=== PATIENT | male | born 1965 | race African-American/Black ===

== ENCOUNTER 2023-11-14 09:12 | Emergency (ER) | payer OTHER ==
[~2023-11-14] VITALS: Ht 188 cm; Wt 91.8 kg
[2023-11-14 10:55] VITALS: PULSE 88; RESP 14; TEMP 98.9; O2SAT 97
[2023-11-14] MEDS: ONDANSETRON HCL 4 MG/2 ML VIAL IM ONE (11:11)
[2023-11-14] MEDS: HYDROmorphone HCL 2 MG/ML VL/or syr IM ONE (11:11)
[2023-11-14 11:35] LABS: Basophils # (auto) 0.1 10 ^3/uL (0-0.2); Basophils % (auto) 1.2 % (0.0-2.0); Eosinophils # (auto) 0.1 10 ^3/uL (0-0.8); Eosinophils % (auto) 1.6 % (0.0-7.0); Hematocrit 36.3 % (41.0-53.0); Hemoglobin 12.4 g/dL (13.5-17.5); Lymphocytes # (auto) 2.7 10 ^3/uL (0.4-5.4); Lymphocytes % (auto) 30.1 % (10.0-50.0); Mean Corpuscular Hemoglobin 31.4 pg (28.0-32.0); Mean Corpuscular Hgb Conc. 34.3 g/dL (32.0-36.0); Mean Corpuscular Volume 91.6 fL (80.0-100.0); Monocytes # (auto) 0.6 10 ^3/uL (0-1.3); Monocytes % (auto) 6.5 % (0.0-12.0); Neutrophils # (auto) 5.3 10 ^3/uL (1.6-8.6); Neutrophils % (auto) 60.6 % (37.0-80.0); Nucleated Red Blood Cells % 0.1 %; Red Blood Cells 3.97 10^6/uL (4.5-5.90); Red Cell Distribution Width 14.9 % (11.8-14.3); White Blood Cell 8.8 10^3/uL (4.4-10.8)
[2023-11-14 11:49] LABS: INR 0.94 (0.9-1.15); Partial Thromboplastin Time 31.7 SEC (24.5-34.5)
[2023-11-14 11:54] LABS: Alanine Aminotransferase 36 U/L (7-40); Albumin 4.3 g/dL (3.2-4.8); Alkaline Phosphatase 66 U/L (46-116); Anion Gap 7 (5-15); Aspartate Aminotransferase 20 U/L (13-40); BUN/Creatinine Ratio 9.2 (10.0-20.0); Bilirubin, Total 0.4 mg/dL (0.2-1.0); Blood Urea Nitrogen 12 mg/dL (9-23); Calcium 9.5 mg/dL (8.7-10.4); Carbon Dioxide 24 mmol/L (20-30); Chloride 110 mmol/L (98-107); Glucose 97 mg/dL (74-106); Magnesium 1.7 mg/dL (1.6-2.6); Sodium 141 mmol/L (136-145); Total Protein 6.7 g/dL (5.7-8.2)
[2023-11-14] MEDS: LORazepam 2MG/ML-1ML VIAL IV ONE (12:07)
[2023-11-14] MEDS: KETOROLAC TROMETH 30 MG/ML 1ML VIAL IV ONE (13:00)
[2023-11-14] MEDS: MORPHINE SULFATE 4 MG/ML SYR/VIAL IV ONE (13:04)
[2023-11-14] MEDS: HYDROmorphone HCL 2 MG/ML VL/or syr IV ONE (14:57)
[2023-11-14] MEDS ORDERED: CYCL-839 PO (16:17)
[2023-11-14] MEDS ORDERED: DICL50TA2 PO (16:17)
[2023-11-14] MEDS ORDERED: HYDR-4902 PO (16:17)
[2023-11-14 16:19] VITALS: BP 156/88; PULSE 88; RESP 18; O2SAT 96
[2023-11-14] MEDS ORDERED: ASPI-498 OR (16:32)
== END 2023-11-14 16:35 | disposition home or self-care (01) ==
LOC: ER 09:12
DX: G45.9 Transient cerebral ischemic attack, unspecified (principal); I10 Essential (primary) hypertension; G89.29 Other chronic pain; M54.9 Dorsalgia, unspecified
CPT/HCPCS: 36415; 70450; 70551; 71045; 80053; 82962; 83735; 83880; 84484; 85025; 85610; 85730; 93005; 96372; 96374; 96375; 99285; J1170; J1885; J2060; J2270; J2405

== ENCOUNTER 2023-11-17 10:38 | Emergency (ER) | payer OTHER ==
[~2023-11-17] VITALS: Ht 188 cm; Wt 91.8 kg
[~2023-11-17 10:38] MED LIST: ASPI-498 OR; CYCL-839 PO; DICL50TA2 PO; HYDR-4902 PO
[2023-11-17] MEDS: SODIUM CHLORIDE 0.9% 1,000 ML IV ONE (12:52)
[2023-11-17] MEDS: ONDANSETRON HCL 4 MG/2 ML VIAL IV ONE (12:52)
[2023-11-17] MEDS: MORPHINE SULFATE 4 MG/ML SYR/VIAL IV ONE (12:54)
[2023-11-17 12:56] VITALS: PULSE 101; RESP 19; O2SAT 95
[2023-11-17 13:05] LABS: Basophils # (auto) 0.1 10 ^3/uL (0-0.2); Basophils % (auto) 1.2 % (0.0-2.0); Eosinophils # (auto) 0.1 10 ^3/uL (0-0.8); Eosinophils % (auto) 1.4 % (0.0-7.0); Hematocrit 38.6 % (41.0-53.0); Hemoglobin 13.4 g/dL (13.5-17.5); Lymphocytes # (auto) 1.7 10 ^3/uL (0.4-5.4); Lymphocytes % (auto) 26.5 % (10.0-50.0); Mean Corpuscular Hemoglobin 31.8 pg (28.0-32.0); Mean Corpuscular Hgb Conc. 34.8 g/dL (32.0-36.0); Mean Corpuscular Volume 91.4 fL (80.0-100.0); Monocytes # (auto) 0.4 10 ^3/uL (0-1.3); Neutrophils # (auto) 4.1 10 ^3/uL (1.6-8.6); Neutrophils % (auto) 63.9 % (37.0-80.0); Nucleated Red Blood Cells % 0.1 %; Red Blood Cells 4.23 10^6/uL (4.5-5.90); White Blood Cell 6.4 10^3/uL (4.4-10.8)
[2023-11-17 13:15] LABS: Anion Gap 9 (5-15); Calcium 10.7 mg/dL (8.7-10.4); Carbon Dioxide 23 mmol/L (20-30); Chloride 108 mmol/L (98-107); Potassium 4.6 mmol/L (3.5-5.1); Sodium 140 mmol/L (136-145)
[2023-11-17 13:21] LABS: BUN/Creatinine Ratio 10.4 (10.0-20.0); Blood Urea Nitrogen 13 mg/dL (9-23); Glucose 109 mg/dL (74-106)
[2023-11-17 13:54] LABS: Urine Bacteria None Seen /hpf (None Seen)
[2023-11-17 14:05] LABS: Urine Blood Negative /uL (Negative); Urine Clarity Clear (Clear); Urine Color Light-Yellow (Yellow); Urine Protein, UAD Negative (Negative); Urine Specific Gravity 1.014 (1.001-1.035); Urine Urobilinogen Normal (Negative); Urine WBC 1 /hpf (0 - 3); Urine pH 7.5 (5.0-9.0)
[2023-11-17 14:19] VITALS: TEMP 98.3
[2023-11-17] MEDS: HYDROcodone-ACET 10/325MG TAB PO ONE (14:46)
[2023-11-17] MEDS ORDERED: PERCOT PO (14:59)
[2023-11-17 15:41] VITALS: BP 145/99; PULSE 78; RESP 18; O2SAT 97
== END 2023-11-17 15:50 | disposition home or self-care (01) ==
LOC: ER 10:38
DX: M79.602 Pain in left arm (principal); M54.9 Dorsalgia, unspecified; F17.210 Nicotine dependence, cigarettes, uncomplicated; F15.90 Other stimulant use, unspecified, uncomplicated; Z86.73 Personal history of transient ischemic attack (TIA), and cerebral infarction without residual deficits; Z85.9 Personal history of malignant neoplasm, unspecified; Z87.442 Personal history of urinary calculi; Z98.890 Other specified postprocedural states; Z88.8 Allergy status to other drugs, medicaments and biological substances; Z79.899 Other long term (current) drug therapy
CPT/HCPCS: 36415; 74176; 80048; 81001; 82962; 85025; 93005; 96361; 96374; 96375; 99285; J2270; J2405; J7030

== ENCOUNTER 2023-12-11 09:53 | Emergency (ER) | payer OTHER ==
[~2023-12-11] VITALS: Ht 188 cm; Wt 95.0 kg
[~2023-12-11 09:53] MED LIST changes: +PERCOT PO
[2023-12-11 11:17] LABS: Basophils # (auto) 0.1 10 ^3/uL (0-0.2); Basophils % (auto) 0.9 % (0.0-2.0); Eosinophils # (auto) 0.1 10 ^3/uL (0-0.8); Eosinophils % (auto) 1.9 % (0.0-7.0); Hematocrit 38.1 % (41.0-53.0); Hemoglobin 12.8 g/dL (13.5-17.5); Lymphocytes # (auto) 2.2 10 ^3/uL (0.4-5.4); Mean Corpuscular Hemoglobin 31.2 pg (28.0-32.0); Mean Corpuscular Hgb Conc. 33.7 g/dL (32.0-36.0); Mean Corpuscular Volume 92.7 fL (80.0-100.0); Monocytes # (auto) 0.6 10 ^3/uL (0-1.3); Monocytes % (auto) 7.8 % (0.0-12.0); Neutrophils # (auto) 4.2 10 ^3/uL (1.6-8.6); Neutrophils % (auto) 58.4 % (37.0-80.0); Nucleated Red Blood Cells % 0.1 %; Platelet Count (auto) 348 10^3/uL (140-450); Red Blood Cells 4.11 10^6/uL (4.5-5.90); Red Cell Distribution Width 15.6 % (11.8-14.3); White Blood Cell 7.2 10^3/uL (4.4-10.8)
[2023-12-11 11:34] LABS: INR 0.97 (0.9-1.15); Partial Thromboplastin Time 33.1 SEC (24.5-34.5); Prothrombin Time 10.3 sec (9.3-11.8)
[2023-12-11 11:35] LABS: Alanine Aminotransferase 21 U/L (7-40); Alkaline Phosphatase 81 U/L (46-116)
[2023-12-11 11:36] LABS: Albumin 4.5 g/dL (3.2-4.8); Anion Gap 6 (5-15); Aspartate Aminotransferase 16 U/L (13-40); BUN/Creatinine Ratio 5.7 (10.0-20.0); Blood Urea Nitrogen 8 mg/dL (9-23); Calcium 9.9 mg/dL (8.7-10.4); Carbon Dioxide 23 mmol/L (20-30); Chloride 109 mmol/L (98-107); Glucose 120 mg/dL (74-106); Potassium 3.8 mmol/L (3.5-5.1); Sodium 138 mmol/L (136-145)
[2023-12-11 11:37] LABS: Bilirubin, Total 0.3 mg/dL (0.2-1.0); Total Protein 7.4 g/dL (5.7-8.2)
[2023-12-11] MEDS: MORPHINE SULFATE 4 MG/ML SYR/VIAL IV ONE ×2 (12:13→14:26)
[2023-12-11] MEDS: ONDANSETRON HCL 4 MG/2 ML VIAL IV ONE (12:13)
[2023-12-11 18:13] VITALS: BP 147/107; PULSE 95; RESP 20; O2SAT 95
[2023-12-11] MEDS ORDERED: ATOR40TA52 PO (18:57)
== END 2023-12-11 19:24 | disposition home or self-care (01) ==
LOC: ER 09:53
DX: R53.1 Weakness (principal); I10 Essential (primary) hypertension; F17.210 Nicotine dependence, cigarettes, uncomplicated; F15.90 Other stimulant use, unspecified, uncomplicated; Z86.73 Personal history of transient ischemic attack (TIA), and cerebral infarction without residual deficits; Z85.9 Personal history of malignant neoplasm, unspecified; Z87.442 Personal history of urinary calculi; Z98.890 Other specified postprocedural states; Z86.2 Personal history of diseases of the blood and blood-forming organs and certain disorders involving the immune mechanism
CPT/HCPCS: 36415; 70450; 80053; 82962; 84484; 85025; 85610; 85730; 93005; 96374; 96375; 96376; 99285; J2270; J2405

== ENCOUNTER 2024-01-16 10:56 | Emergency (ER) | payer OTHER ==
[~2024-01-16] VITALS: Ht 188 cm; Wt 93.0 kg
[2024-01-16 10:56] VITALS: BP 131/70; RESP 20; O2SAT 98
[~2024-01-16 10:56] MED LIST changes: +ATOR40TA52 PO
[2024-01-16 11:15] VITALS: PULSE 99
== END 2024-01-16 18:17 | disposition left against medical advice (07) ==
LOC: ER 10:56
DX: R53.1 Weakness (principal); R51.9 Headache, unspecified; I10 Essential (primary) hypertension; K21.9 Gastro-esophageal reflux disease without esophagitis; E78.5 Hyperlipidemia, unspecified; F17.210 Nicotine dependence, cigarettes, uncomplicated; F12.10 Cannabis abuse, uncomplicated; Z86.73 Personal history of transient ischemic attack (TIA), and cerebral infarction without residual deficits
CPT/HCPCS: 70450; 82962; 93005

== ENCOUNTER 2024-10-30 12:17 | Observation (INO) | payer OTHER ==
[~2024-10-30] VITALS: Ht 188 cm; Wt 94.0 kg
[2024-10-30 12:30] VITALS: TEMP 98
--- NOTE | 2024-10-30 12:36 | ED.PDOC ---
HPI (NEURO) HPI Comments 58-year-old male presents here with left-sided weakness. History is given by both the patient and his . However patient is uncooperative in triage and difficult to get a history. However it seems that patient symptoms started 2 days ago and a proximally 2-3 a.m.. They went to [facility] where he was evaluated and discharged. He went to [facility] yesterday and also was discharged at that point. The states he does have a history of stroke but at normal baseline he does not have symptoms. She states these are new. Denies any fever or chills. Denies any cough cold runny nose. Patient not on any blood thinners. Chief Complaint: Left Sided Weakness Time Seen by MD: 12:19 Primary Care Provider: Arsh Information Source: Patient, Relative, Spouse Past Medical History PAST MEDICAL HISTORY: Cancer, CVA, GERD, High Lipids, HTN, Kidney Stones, Seizures Surgical History: Denies all surgeries Family History Family History: Unknown Social History Smoker: Cigarettes Alcohol: Denies ETOH Use Drugs: Marijuana Lives In: Home All Other Systems: Reviewed and Negative Physical Exam General Appearance: Moderate Distress, Normal HEENT: Normal ENT Inspection, Pharynx Normal, TMs Normal Neck: Full Range of Motion, Non-Tender, Normal, Normal Inspection Respiratory: Chest Non-Tender, Lungs Clear, No Accessory Muscle Use, No Respiratory Distress, Normal Breath Sounds Cardiovascular: No Edema, No JVD, No Murmur, No Gallop, Normal Peripheral Pulses, Regular Rate/Rhythm Breast Exam: Deferred Gastrointestinal: No Organomegaly, Non Tender, No Pulsatile Mass, Normal Bowel Sounds, Soft Genitalia: Deferred Pelvic: Deferred Rectal: Deferred Extremities: No calf tenderness, Normal capillary refill, Normal inspection, Normal range of motion, Non-tender, No pedal edema Musculoskeletal : Apperance: Normal Neurologic: Alert, Normal Affect, Normal Mood, Other (Complete left-sided paresis to left upper and lower extremity. Left facial droop. Positive slurred speech) Cerebellar Function: Normal Reflexes: Normal Skin: Dry, Normal Color, Warm Lymphatic: No Adenopathy EKG EKG : Comments sinus tachycardia, rate of 122, no st changes Was a procedure done? Was a procedure done?: No Differential Diagnosis (SZ) Seizure: Other CVA: SAH, Other (Stroke, TIA, migraine) General Weakness: Other Headache: Other X-Ray, Labs, Meds, VS Vital Signs Date Time Temp Pulse Resp B/P (MAP) Pulse Ox O2 Delivery O2 Flow Rate FiO2 10/30/24 17:00 96 20 157/120 (132) 98 10/30/24 15:53 100 20 153/111 10/30/24 15:24 104 24 155/103 10/30/24 15:23 104 24 155/103 10/30/24 15:00 104 24 155/103 (120) 98 10/30/24 13:19 111 18 140/100 10/30/24 12:35 120 16 140/100 (113) 92 10/30/24 12:30 98.0 130 20 121/94 (103) 99 98.0 10/30/24 12:23 122 Lab Test 10/30/24 15:45 10/30/24 15:44 10/30/24 15:00 Range/Units Urine Color Yellow Yellow Urine Clarity Clear Clear Urine pH 6.0 5.0-9.0 Urine Specific [place] > 1.035 H 1.001-1.035 Urine Protein Trace H Negative Urine Ketones 1+ H Negative Urine Blood Trace H Negative /uL Urine Nitrite Negative Negative Urine Bilirubin Negative Negative Urine Urobilinogen Normal Negative mg/dL Urine Leukocyte Esterase Negative Negative /uL Urine RBC 3 0 - 3 /hpf Urine Microscopic WBC < 1 0-3 /HPF Urine Squamous Epithelial Cells Few <5 /hpf Urine Bacteria None seen None Seen /hpf Urine Glucose Normal Normal mg/dL Troponin I High Sensitivity 5 6 </=54 ng/L White Blood Count 10.3 4.4-10.8 10^3/uL Red Blood Count 4.56 4.5-5.90 10^6/uL Hemoglobin 14.2 13.5-17.5 g/dL Hematocrit 41.7 41.0-53.0 % Mean Corpuscular Volume 91.4 80.0-100.0 fL Mean Corpuscular Hemoglobin 31.2 28.0-32.0 pg Mean Corpuscular Hemoglobin Concent 34.1 32.0-36.0 g/dL Red Cell Distribution Width 14.9 H 11.8-14.3 % Platelet Count 423 140-450 10^3/uL Mean Platelet Volume 7.3 6.9-10.8 fL Neutrophils (%) (Auto) 64.4 37.0-80.0 % Lymphocytes (%) (Auto) 26.8 10.0-50.0 % Monocytes (%) (Auto) 7.6 0.0-12.0 % Eosinophils (%) (Auto) 0.6 0.0-7.0 % Basophils (%) (Auto) 0.6 0.0-2.0 % Neutrophils # (Auto) 6.6 1.6-8.6 10 ^3/uL Lymphocytes # (Auto) 2.8 0.4-5.4 10 ^3/uL Monocytes # (Auto) 0.8 0-1.3 10 ^3/uL Eosinophils # (Auto) 0.1 0-0.8 10 ^3/uL Basophils # (Auto) 0.1 0-0.2 10 ^3/uL Nucleated Red Blood Cells 0.2 % Sodium Level 144 136-145 mmol/L Potassium Level 3.8 3.5-5.1 mmol/L Chloride Level 115 H 98-107 mmol/L Carbon Dioxide Level 20 20-31 mmol/L Anion Gap 9 5-15 Blood Urea Nitrogen 14 9-23 mg/dL Creatinine 1.36 H 0.700-1.30 mg/dL Glomerular Filtration Rate Calc 61 >90 mL/min BUN/Creatinine Ratio 10.3 10.0-20.0 Serum Glucose 80 74-106 mg/dL Calcium Level 9.7 8.7-10.4 mg/dL Total Bilirubin 0.9 0.2-1.0 mg/dL Aspartate Amino Transferase (AST) 24 13-40 U/L Alanine Aminotransferase (ALT) 16 7-40 U/L Alkaline Phosphatase 83 46-116 U/L Total Protein 7.4 5.7-8.2 g/dL Albumin 4.7 3.2-4.8 g/dL Current Medications Medications (Trade) Dose Ordered Sig/Esther Route Start Time Stop Time Status Last Admin Morphine Sulfate 8 mg ONCE ONCE IM 10/30/24 13:00 10/30/24 13:01 DC 10/30/24 13:19 Ondansetron HCl (Zofran Po) 4 mg ONCE ONCE PO 10/30/24 13:00 10/30/24 13:01 DC 10/30/24 13:16 Hydromorphone HCl (Dilaudid Injection) 1 mg ONCE ONCE IV 10/30/24 15:15 10/30/24 15:16 DC 10/30/24 15:23 58-year-old male presents here with left-sided paresis. He was immediately taken back to be seen by myself as it did not look well. He had left facial droop left arm and complete left leg weakness. However at this time he is out of the time window for tPA and neurologic intervention given the has been more than 2 days. At this time blood work has been done which is largely unremarkable. He has mild acute kidney injury at 1.36. At this time CT scan of the brain has been done which does not demonstrate acute pathology. Patient has been given aspirin in the ER. Here to team has been consulted for admission. I have spoken Dr. King Time of 1ST Reevaluation: 15:23 Reevaluation 1ST: Unchanged Patient Education/Counseling: Diagnosis, Treatment Family Education/Counseling: Diagnosis, Treatment Departure 1 Departure Time of Disposition: 17:23 Impression: Primary Impression: Stroke-like symptoms Additional Impression: Left-sided weakness Disposition: 09 ADMITTED INPATIENT Condition: Guarded Critical Care Note Critical Care Time?: Yes (35 min-critical care time only) Stability Stability form required: No Heart Score Heart Score: Heart Score Response (Comments) Value History N/A 0 EKG N/A 0 Age N/A 0 Risk Factors N/A 0 Troponin N/A 0 Total 0 PALAK SUBRAMANIAN MD Oct 30, 2024 12:36
--- NOTE | 2024-10-30 12:36 | ECG ---
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
[2024-10-30] MEDS: ONDANSETRON ODT 4 MG TAB PO ONE (13:16)
[2024-10-30] MEDS: MORPHINE SULFATE INJ 2 MG/ml SYRG IM ONE (13:19)
--- NOTE | 2024-10-30 14:39 | DVH ---
Procedure: CT HEAD WITHOUT CONTRAST Study Date and Requested Time: 10/30/2024 01:31 PM History: ro stroke Comparison: CT STROKE CTH on DOS: 01/16/24, CT HEAD WITHOUT CONTRAST on DOS: 12/23/23, CT STROKE CTH on DOS: 12/11/23 Dose: CTDI: 57.09 mGy DLP: 1125.08 mGycm Technique: Multiplanar images obtained through the brain without intravenous contrast. Findings: Old frontoparietal predominant brain atrophy with [id number] cerebellar atrophy. Mild chronic s mall vessel ischemic changes. No hemorrhages, masses, mass effect, midline shift, herniation or cytotoxic edema following a large v ascular territory. No intra-axial or extra-axial fluid collections. No evidence of hydrocephalus. The basal cisterns are patent. The pituitary gland, sella and parasellar regions are unremarkable. The cerebellar tonsils are in nor mal position. The cerebellum is unremarkable. The orbits and globes are unremarkable. The paranasal sinuses and mastoids are clear. There are no wo rrisome calvarial lesions. Impression: No evidence of acute intracranial abnormality. If symptoms persist, consider MRI for further evaluati on.
[2024-10-30 15:10] LABS: Hematocrit 41.7 % (41.0-53.0); Hemoglobin 14.2 g/dL (13.5-17.5); Mean Corpuscular Hemoglobin 31.2 pg (28.0-32.0); Mean Corpuscular Volume 91.4 fL (80.0-100.0); Nucleated Red Blood Cells % 0.2 %
[2024-10-30] MEDS: HYDROmorphone HCL 2 MG/ML VL/or syr IV ONE ×2 (15:23→18:06)
[2024-10-30 15:25] LABS: Alanine Aminotransferase 16 U/L (7-40); Albumin 4.7 g/dL (3.2-4.8); Alkaline Phosphatase 83 U/L (46-116); Anion Gap 9 (5-15); BUN/Creatinine Ratio 10.3 (10.0-20.0); Blood Urea Nitrogen 14 mg/dL (9-23); Calcium 9.7 mg/dL (8.7-10.4); Carbon Dioxide 20 mmol/L (20-31); Glucose 80 mg/dL (74-106); Potassium 3.8 mmol/L (3.5-5.1); Sodium 144 mmol/L (136-145); Total Protein 7.4 g/dL (5.7-8.2)
[2024-10-30 15:26] LABS: Bilirubin, Total 0.9 mg/dL (0.2-1.0)
[2024-10-30 15:46] LABS: Chloride 115 mmol/L (98-107)
[2024-10-30 16:17] LABS: Urine Protein, UAD TRACE (Negative)
[2024-10-30 17:00] VITALS: O2SAT 98
[2024-10-30 18:06] VITALS: BP 136/97; PULSE 96; RESP 30
[2024-10-30] MEDS ORDERED: ACETAMINOPHEN 325 MG TAB PO PRN (18:45)
[2024-10-30] MEDS ORDERED: LORazepam 2MG/ML-1ML VIAL IV PRN (18:45)
[2024-10-30] MEDS ORDERED: MORPHINE SULFATE INJ 2 MG/ml SYRG IV PRN (18:45)
[2024-10-30] MEDS ORDERED: TEMAZEPAM 15 MG CAP PO PRN (18:45)
[2024-10-30] MEDS ORDERED: OXYCODONE W/ ACETAMINOPHEN 5/325MG TABLET PO PRN (18:45)
[2024-10-30] MEDS ORDERED: NITROGLYCERIN 0.4 MG SL TAB SL PRN (18:45)
[2024-10-30] MEDS ORDERED: HYDROcodone-ACET 5/325MG TAB PO PRN (18:45)
[2024-10-30] MEDS ORDERED: HYDROmorphone HCL 2 MG/ML VL/or syr IV PRN (18:45)
--- NOTE | 2024-10-30 18:55 | DVHHP2 ---
Admitting Diagnosis: Left sided weakness and pain History of Present Illness HPI Patient with history of CVA with left sided weakness presents with complaints of persistent pain. Patient has a previous admission 2 days prior for similar complaints at [facility]. He had left AMA at the time. Patient presents again due to persistence of left side pain. He notes that he sees pain management but does not know why he has left-sided pain to this extent. Patient denies completing cervical spine imaging. Patient denies any worsening in weakness. I had an extensive discussion with the patient, his at bedside and nurse Christ. Patient has been noted to be uncooperative at times with episodes of anger. I spent a significant portion of time counseling the patient on the plan of care with imaging suggested. Patient was in agreement with this plan. I also emphasized to the patient that his pain medications will be timed accordingly without excessive IV pain medications as patient has a prior history of requesting excessive pain medication. Patient initially was frustrated but then was in agreement with the plan after understanding the timeline. Patient was admitted for further evaluation of his left upper extremity and lower extremity pain. Home Meds Active Scripts Atorvastatin Calcium (ATORVASTATIN CALCIUM) 40 Mg Tab, 1 TAB PO QPM, #90 TAB 3 Refills Prov:RADHAMES ALEJO DO 12/11/23 Oxycodone W/ Acetaminophen (Percocet 5/325MG) 1 Tab Tb, 1 TAB PO BID, #30 TAB Prov:CESAR SEGURA MD 11/17/23 Aspirin (ASPIRIN 81) 81 Mg Tab, 81 MG OR BID for 90 Days, #180 TAB Prov:SUPRIYA FORBES MD 11/14/23 Hydrocodone-Acetaminophen (Hydrocodone Bitartrate/AC 5-325 mg) 1 Tab Tab, 1 TAB PO TID for 5 Days, #15 TAB Prov:SUPRIYA FORBES MD 11/14/23 Cyclobenzaprine Hcl (Cyclobenzaprine Hcl) 10 Mg Tab, 10 MG PO TID for 10 Days, #30 TAB Prov:SUPRIYA FORBES MD 11/14/23 Diclofenac Potassium (Diclofenac Potassium) 50 Mg Tab, 1 TAB PO TIDP for 10 Days, #30 TAB Prov:SUPRIYA FORBES MD 11/14/23 Past Medical History Cardiac: HTN Central Nervous System: CVA Review of Systems Musculoskeletal: Arm pain H&P Exam Vital Signs Vital Signs Date Time Temp Pulse Resp B/P (MAP) Pulse Ox O2 Delivery O2 Flow Rate FiO2 10/30/24 18:06 96 30 136/97 10/30/24 17:00 98 10/30/24 12:30 98.0 98.0 General Appeara: Well developed Cardiovascular/Chest: Normal inspection, Tachycardia Tendon/ Neuro: Normal sensation, Other (Decreased strength left upper and lower extremity) Eye contact/ Speech: Belligerent SEPSIS Sepsis Screen Date sepsis recognized/suspect: Oct 30, 2024 Time Sepsis recognized/suspect: 1221 Recent Procedure: No On Antibiotic Therapy: No Respiratory Rate >20: No Heart Rate >90: Yes Temp<36 C (96.8 F) or >38.3 C: No SBP <90 or MAP <65 mmHG: No New Acute Mental Status Change: No Is the patient on CPAP, BIPAP,: No Physician Orders Head Without Contrast (10/30/24 12:31) Electrocardigram (10/30/24 13:31) Admit (10/30/24 18:34) Code Status (10/30/24 18:34) Acetaminophen Tablet (Tylenol Tablet) (10/30/24 18:45) Hydrocodone-Acet 5/325mg Tab ([place] 5/32 (10/30/24 18:45) Temazepam (Restoril) (10/30/24 18:45) Nitroglycerin Sublingual (Ntrostat Subli (10/30/24 18:45) Morphine Sulfate Injection (10/30/24 18:45) Stat Ekg For Chest Pain (10/30/24 18:34) Notify Md Of Changes From Base (10/30/24 18:34) Defensive Driving Instructor For 24 Hours (10/30/24 18:34) Emergency Dysrhythmia Protocol (10/30/24 18:34) Rhythm Strips Once Every Shift (10/30/24 18:34) Oxygen By Nasal Cannula (10/30/24 18:34) Oxycodone W/ Acet 5/325mg Tab (Percocet (10/30/24 18:45) Hydromorphone Injection (Dilaudid Inject (10/30/24 18:45) Brain Head Wo Contrast (10/30/24 18:37) Mri Neck W Out Contrast (10/30/24 18:40) Lorazepam 2mg/Ml Inj (Ativan Inj) (10/30/24 18:45) Vital Signs Date Time Temp Pulse Resp B/P (MAP) Pulse Ox O2 Delivery O2 Flow Rate FiO2 10/30/24 18:06 96 30 136/97 10/30/24 17:00 96 20 157/120 (132) 98 10/30/24 15:53 100 20 153/111 10/30/24 15:24 104 24 155/103 10/30/24 15:23 104 24 155/103 10/30/24 15:00 104 24 155/103 (120) 98 10/30/24 13:19 111 18 140/100 10/30/24 12:35 120 16 140/100 (113) 92 10/30/24 12:30 98.0 130 20 121/94 (103) 99 98.0 10/30/24 12:23 122 Laboratory Tests Test 10/30/24 15:00 White Blood Count 10.3 10^3/uL (4.4-10.8) Medications Medications Dose Ordered Sig/Esther Route Start Time Stop Time Status Last Admin Dose Admin Hydromorphone HCl 1 mg ONCE ONCE IV 10/30/24 15:15 10/30/24 15:16 DC 10/30/24 15:23 1 MG Hydromorphone HCl 1 mg ONCE ONCE IV 10/30/24 18:00 10/30/24 18:01 DC 10/30/24 18:06 1 MG Morphine Sulfate 8 mg ONCE ONCE IM 10/30/24 13:00 10/30/24 13:01 DC 10/30/24 13:19 8 MG Ondansetron HCl 4 mg ONCE ONCE PO 10/30/24 13:00 10/30/24 13:01 DC 10/30/24 13:16 4 MG Labs/Xrays Labs Test 10/30/24 15:45 10/30/24 15:44 10/30/24 15:00 Range/Units Urine Color Yellow Yellow Urine Clarity Clear Clear Urine pH 6.0 5.0-9.0 Urine Specific [place] > 1.035 H 1.001-1.035 Urine Protein Trace H Negative Urine Ketones 1+ H Negative Urine Blood Trace H Negative /uL Urine Nitrite Negative Negative Urine Bilirubin Negative Negative Urine Urobilinogen Normal Negative mg/dL Urine Leukocyte Esterase Negative Negative /uL Urine RBC 3 0 - 3 /hpf Urine Microscopic WBC < 1 0-3 /HPF Urine Squamous Epithelial Cells Few <5 /hpf Urine Bacteria None seen None Seen /hpf Urine Glucose Normal Normal mg/dL Troponin I High Sensitivity 5 </=54 ng/L White Blood Count 10.3 4.4-10.8 10^3/uL Red Blood Count 4.56 4.5-5.90 10^6/uL Hemoglobin 14.2 13.5-17.5 g/dL Hematocrit 41.7 41.0-53.0 % Mean Corpuscular Volume 91.4 80.0-100.0 fL Mean Corpuscular Hemoglobin 31.2 28.0-32.0 pg Mean Corpuscular Hemoglobin Concent 34.1 32.0-36.0 g/dL Red Cell Distribution Width 14.9 H 11.8-14.3 % Platelet Count 423 140-450 10^3/uL Mean Platelet Volume 7.3 6.9-10.8 fL Neutrophils (%) (Auto) 64.4 37.0-80.0 % Lymphocytes (%) (Auto) 26.8 10.0-50.0 % Monocytes (%) (Auto) 7.6 0.0-12.0 % Eosinophils (%) (Auto) 0.6 0.0-7.0 % Basophils (%) (Auto) 0.6 0.0-2.0 % Neutrophils # (Auto) 6.6 1.6-8.6 10 ^3/uL Lymphocytes # (Auto) 2.8 0.4-5.4 10 ^3/uL Monocytes # (Auto) 0.8 0-1.3 10 ^3/uL Eosinophils # (Auto) 0.1 0-0.8 10 ^3/uL Basophils # (Auto) 0.1 0-0.2 10 ^3/uL Nucleated Red Blood Cells 0.2 % Sodium Level 144 136-145 mmol/L Potassium Level 3.8 3.5-5.1 mmol/L Chloride Level 115 H 98-107 mmol/L Carbon Dioxide Level 20 20-31 mmol/L Anion Gap 9 5-15 Blood Urea Nitrogen 14 9-23 mg/dL Creatinine 1.36 H 0.700-1.30 mg/dL Glomerular Filtration Rate Calc 61 >90 mL/min BUN/Creatinine Ratio 10.3 10.0-20.0 Serum Glucose 80 74-106 mg/dL Calcium Level 9.7 8.7-10.4 mg/dL Total Bilirubin 0.9 0.2-1.0 mg/dL Aspartate Amino Transferase (AST) 24 13-40 U/L Alanine Aminotransferase (ALT) 16 7-40 U/L Alkaline Phosphatase 83 46-116 U/L Total Protein 7.4 5.7-8.2 g/dL Albumin 4.7 3.2-4.8 g/dL Assessment/Plan Primary Diagnosis 1. Left upper extremity pain with weakness 2. Left lower extremity pain with weakness 3. History of CVA Plan - Admit to telemetry MRI brain without contrast ordered - MRI cervical spine without contrast ordered - Ativan 1 mg IV ordered prior to MRI due to claustrophobia - Pain medications listed per MAR - No excessive IV pain medications as patient was history of pain seeking -Full Code Plan discussed with: Patient, Spouse CHRISTOFERJASWINDER NEFFBrooks Hendrix DO Oct 30, 2024 18:55
--- NOTE | 2024-10-30 20:29 | DVHINCON2 ---
Date of service: Oct 30, [address] Bay Reason for Consultation Left-sided weakness History of Present Illness He left without sign in AMA paperwork 10/30/24 HPI (NEURO) HPI Comments 58-year-old male presents here with left-sided weakness. History is given by both the patient and his . However patient is uncooperative in triage and difficult to get a history. However it seems that patient symptoms started 2 days ago and a proximally 2-3 a.m.. They went to [facility] where he was evaluated and discharged. He went to [facility] yesterday and also was discharged at that point. The states he does have a history of stroke but at normal baseline he does not have symptoms. She states these are new. Denies any fever or chills. Denies any cough cold runny nose. Patient not on any blood thinners. Chief Complaint: Left Sided Weakness He was seen in the [facility] on 12/11/23 for left-sided weakness, 11/14/23 for left- sided weakness (MRI 10/15/23: No acute stroke) Urinalysis, 10/30/2024: WBC: <1, urine leukocyte esterase: Negative CBC, 10/30/2024: Unremarkable BUN/CR, 10/30/2024: 14/1.36 CT head, 10/30/2024 No evidence of acute intracranial abnormality. If symptoms persist, consider MRI for further evaluation Hypertension, dyslipidemia, stroke, GERD, cancer, kidney stone, seizure Denies all surgeries Unknown Smoker: Cigarettes Alcohol: Denies ETOH Use Drugs: Marijuana Lives In: Home Allergies: Coded Allergies: Metoclopramide (Verified Allergy, Unknown, 11/14/23) Home Meds Active Scripts Atorvastatin Calcium (ATORVASTATIN CALCIUM) 40 Mg Tab, 1 TAB PO QPM, #90 TAB 3 Refills Prov:RADHAMES ALEJO DO 12/11/23 Oxycodone W/ Acetaminophen (Percocet 5/325MG) 1 Tab Tb, 1 TAB PO BID, #30 TAB Prov:CESAR SEGURA MD 11/17/23 Aspirin (ASPIRIN 81) 81 Mg Tab, 81 MG OR BID for 90 Days, #180 TAB Prov:SUPRIYA FORBES MD 11/14/23 Hydrocodone-Acetaminophen (Hydrocodone Bitartrate/AC 5-325 mg) 1 Tab Tab, 1 TAB PO TID for 5 Days, #15 TAB Prov:SUPRIYA FORBES MD 11/14/23 Cyclobenzaprine Hcl (Cyclobenzaprine Hcl) 10 Mg Tab, 10 MG PO TID for 10 Days, #30 TAB Prov:SUPRIYA FORBES MD 11/14/23 Diclofenac Potassium (Diclofenac Potassium) 50 Mg Tab, 1 TAB PO TIDP for 10 Days, #30 TAB Prov:SUPRIYA FORBES MD 11/14/23 Current Medications Current Medications Medications (Trade) Dose Ordered Sig/Esther Route PRN Reason Start Time Stop Time Status Last Admin Acetaminophen (Tylenol Tablet) 325 mg Q4HP PRN PO MILD PAIN (1-3 PAIN SCALE) 10/30/24 18:45 Acetaminophen/ Hydrocodone Bitart ([place] 5/325MG Tab) 1 tab Q4HP PRN PO MODERATE PAIN (4-6 PAIN SCALE) 10/30/24 18:45 Temazepam (Restoril) 15 mg QHSP PRN PO FOR INSOMNIA 10/30/24 18:45 Nitroglycerin (Ntrostat Sublingual) 0.4 mg Q5MINP PRN SL FOR CHEST PAIN 10/30/24 18:45 Morphine Sulfate 2 mg Q30M PRN IV FOR CHEST PAIN 10/30/24 18:45 Oxycodone/ Acetaminophen (Percocet 5/ 325MG Tablet) 1 tab Q4HP PRN PO Severe Pain 10/30/24 18:45 Hydromorphone HCl (Dilaudid Injection) 1 mg Q3HPRN PRN IV Breakthrough pain 10/30/24 18:45 Lorazepam (Ativan Inj) 1 mg ONCE PRN IV Give before MRI 10/30/24 18:45 Vital Signs Vital Signs Date Time Temp Pulse Resp B/P (MAP) Pulse Ox O2 Delivery O2 Flow Rate FiO2 10/30/24 18:06 96 30 136/97 10/30/24 17:00 98 10/30/24 12:30 98.0 98.0 Labs/Diagnostic Data Labs Test 10/30/24 15:45 10/30/24 15:44 10/30/24 15:00 Range/Units Urine Color Yellow Yellow Urine Clarity Clear Clear Urine pH 6.0 5.0-9.0 Urine Specific [place] > 1.035 H 1.001-1.035 Urine Protein Trace H Negative Urine Ketones 1+ H Negative Urine Blood Trace H Negative /uL Urine Nitrite Negative Negative Urine Bilirubin Negative Negative Urine Urobilinogen Normal Negative mg/dL Urine Leukocyte Esterase Negative Negative /uL Urine RBC 3 0 - 3 /hpf Urine Microscopic WBC < 1 0-3 /HPF Urine Squamous Epithelial Cells Few <5 /hpf Urine Bacteria None seen None Seen /hpf Urine Glucose Normal Normal mg/dL Troponin I High Sensitivity 5 </=54 ng/L White Blood Count 10.3 4.4-10.8 10^3/uL Red Blood Count 4.56 4.5-5.90 10^6/uL Hemoglobin 14.2 13.5-17.5 g/dL Hematocrit 41.7 41.0-53.0 % Mean Corpuscular Volume 91.4 80.0-100.0 fL Mean Corpuscular Hemoglobin 31.2 28.0-32.0 pg Mean Corpuscular Hemoglobin Concent 34.1 32.0-36.0 g/dL Red Cell Distribution Width 14.9 H 11.8-14.3 % Platelet Count 423 140-450 10^3/uL Mean Platelet Volume 7.3 6.9-10.8 fL Neutrophils (%) (Auto) 64.4 37.0-80.0 % Lymphocytes (%) (Auto) 26.8 10.0-50.0 % Monocytes (%) (Auto) 7.6 0.0-12.0 % Eosinophils (%) (Auto) 0.6 0.0-7.0 % Basophils (%) (Auto) 0.6 0.0-2.0 % Neutrophils # (Auto) 6.6 1.6-8.6 10 ^3/uL Lymphocytes # (Auto) 2.8 0.4-5.4 10 ^3/uL Monocytes # (Auto) 0.8 0-1.3 10 ^3/uL Eosinophils # (Auto) 0.1 0-0.8 10 ^3/uL Basophils # (Auto) 0.1 0-0.2 10 ^3/uL Nucleated Red Blood Cells 0.2 % Sodium Level 144 136-145 mmol/L Potassium Level 3.8 3.5-5.1 mmol/L Chloride Level 115 H 98-107 mmol/L Carbon Dioxide Level 20 20-31 mmol/L Anion Gap 9 5-15 Blood Urea Nitrogen 14 9-23 mg/dL Creatinine 1.36 H 0.700-1.30 mg/dL Glomerular Filtration Rate Calc 61 >90 mL/min BUN/Creatinine Ratio 10.3 10.0-20.0 Serum Glucose 80 74-106 mg/dL Calcium Level 9.7 8.7-10.4 mg/dL Total Bilirubin 0.9 0.2-1.0 mg/dL Aspartate Amino Transferase (AST) 24 13-40 U/L Alanine Aminotransferase (ALT) 16 7-40 U/L Alkaline Phosphatase 83 46-116 U/L Total Protein 7.4 5.7-8.2 g/dL Albumin 4.7 3.2-4.8 g/dL Plan discussed with: Other GLENROY PARKER MD Oct 30, 2024 20:29
== END 2024-10-30 20:14 | disposition left against medical advice (07) ==
LOC: ER 12:17 → OVERFLOW 18:34 → INTOOBSV 18:34
PROVIDERS: ADMIT Student in an Organized Health Care Education/Training Program; ATTEND Student in an Organized Health Care Education/Training Program
DX: R53.1 Weakness (principal); M79.605 Pain in left leg; R55 Syncope and collapse; E78.5 Hyperlipidemia, unspecified; F17.210 Nicotine dependence, cigarettes, uncomplicated; I10 Essential (primary) hypertension; K21.9 Gastro-esophageal reflux disease without esophagitis; Z87.442 Personal history of urinary calculi; Z98.890 Other specified postprocedural states; Z79.899 Other long term (current) drug therapy; Z86.73 Personal history of transient ischemic attack (TIA), and cerebral infarction without residual deficits
CPT/HCPCS: 36415; 70450; 80053; 81001; 84484; 85025; 93005; 96372; 96374; 96376; 99291; G0378; J1171; J2270; Q0162